=== PATIENT | female | born 1995 | race Two or more races ===

== ENCOUNTER 2024-11-02 17:57 | Emergency (ER) | payer OTHER ==
[~2024-11-02] VITALS: Ht 154.9 cm; Wt 74.1 kg
[2024-11-02] MEDS: LIDOCAINE 2% MDV 20 ML VIAL SC ONE (21:29)
[2024-11-02] MEDS ORDERED: CLIN-250 PO (21:55)
[2024-11-02] MEDS: CLINDAMYCIN 150 MG CAPSULE PO ONE (22:10)
[2024-11-02 22:27] VITALS: BP 121/87; TEMP 98.2; O2SAT 98
== END 2024-11-02 22:28 | disposition home or self-care (01) ==
LOC: M ED 17:57
DX: L03.011 Cellulitis of right finger (principal); Z79.2 Long term (current) use of antibiotics

== ENCOUNTER → 2024-11-02 | Outpatient (CLI) | payer OTHER ==
[~2024-11-02] MED LIST: CLIN-250 PO
== END ==
LOC: M RAD 09:27
PROVIDERS: ATTEND Physician Assistant
DX: M79.644 Pain in right finger(s) (principal); L03.011 Cellulitis of right finger

== ENCOUNTER 2024-11-04 16:56 | Emergency (ER) | payer OTHER ==
[~2024-11-04] VITALS: Ht 157.5 cm; Wt 74.6 kg
[2024-11-04 19:02] VITALS: BP 112/71; TEMP 97; O2SAT 100
== END 2024-11-04 19:11 | disposition home or self-care (01) ==
LOC: M ED 16:56
DX: L03.011 Cellulitis of right finger (principal); Z79.2 Long term (current) use of antibiotics